=== PATIENT | male | born 1995 | race Caucasian/White ===

== ENCOUNTER → 2017-02-23 | Outpatient (CLI) | payer OTHER ==
[~2017-02-23] MED LIST: CRESTOR20 MG PO; ZITHROMAX Z PA250 MG PO
== END ==
LOC: BHSO 16:22
DX: F41.1 Generalized anxiety disorder (principal)

== ENCOUNTER → 2017-07-30 | Outpatient (CLI) | payer OTHER | LOC: BHSO 16:01 | DX: F33.1 Major depressive disorder, recurrent, moderate (principal) ==

== ENCOUNTER → 2017-10-29 | Outpatient (CLI) | payer OTHER | LOC: BHSO 15:39 | DX: F41.1 Generalized anxiety disorder (principal) ==

== ENCOUNTER → 2018-02-15 | Outpatient (CLI) | payer OTHER | LOC: BHSO 13:42 | DX: F31.81 Bipolar II disorder (principal) | CPT/HCPCS: G0463 ==